=== PATIENT | female | born 1930 | race Caucasian/White ===

== ENCOUNTER 2017-06-02 11:11 | Inpatient (IN) | payer OTHER ==
[~2017-06-02] VITALS: Ht 152.4 cm; Wt 77.0 kg
[2017-06-02] MEDS ORDERED: ondansetron 4mg rapidly disintigrating tab PO ONE (12:15)
[2017-06-02] MEDS ORDERED: ondansetron/PF 4mg/2ml inj IV ONE (12:20)
[2017-06-02] MEDS ORDERED: normal saline 1000ml 1,000 ML IV ONE (12:20)
[2017-06-02] MEDS ORDERED: meclizine 12.5mg tablet PO ONE (12:25)
[2017-06-02 12:31] LABS: ALANINE AMINOTRANSFERASE 28 U/L (12-78); ALBUMIN 4.5 G/DL (3.4-5.0); ALBUMIN/GLOBULIN RATIO 1.2 (1.1-1.5); ALKALINE PHOSPHATASE 75 IU/L (46-116); ANION GAP 11 (8-16); ASPARTATE AMINO TRANSFERASE 29 U/L (10-37); BILIRUBIN,TOTAL 0.7 MG/DL (0.1-1.0); BLOOD UREA NITROGEN 25 MG/DL (7-18); BUN/CREATININE RATIO 23.6 (6.6-38.0); CALCIUM 9.7 MG/DL (8.5-10.1); CHLORIDE 103 MMOL/L (99-107); CREATININE 1.06 MG/DL (0.40-0.90); GLUCOSE 189 MG/DL (70-104); LIPASE 125 U/L (73-393); SODIUM 140 MMOL/L (135-145); TOTAL CARBON DIOXIDE 25.9 MMOL/L (24-32); TOTAL PROTEIN 8.2 G/DL (6.4-8.2); eGFR 49 ML/MIN
[2017-06-02 12:34] LABS: POTASSIUM 4.5 MMOL/L (3.5-5.1)
[2017-06-02 14:07] LABS: CLARITY,URINE SLIGHTLY CLOUDY (Clear); COLOR,URINE YELLOW (Yellow); GLUCOSE, URINE NEGATIVE (Neg); KETONES,URINE NEGATIVE (Neg); LEUKOCYTE ESTERASE ,URINE SMALL (Neg); NITRITES, URINE POSITIVE (Neg); OCCULT BLOOD,URINE TRACE-INTACT (Neg); PH,URINE 5.5 (4.8-8.0); PROTEIN,URINE 100 mg/dl (Neg); UA COLLECTION TYPE STRAIGHT CATH; UROBILINOGEN,URINE 0.2 E.U/dL (0.2-1.0)
[2017-06-02 14:13] LABS: BACTERIA,URINE 4+ /HPF (Neg); RBC,URINE 0-2 /HPF (0-2); SQUAMOUS EPITHELIAL CELL,UR NONE SEEN /LPF (FEW)
[2017-06-02 14:16] LABS: BASOPHILS % (AUTO) 0.1 % (0-1); EOSINOPHILS # (AUTO) 0.1 X10'3 (0-0.9); EOSINOPHILS % (AUTO) 0.6 % (0-6); HEMATOCRIT 42.3 % (35.0-45.0); HEMOGLOBIN 14.7 g/dl (12.0-16.0); LYMPHOCYTES # (AUTO) 0.5 X10'3 (1.1-4.8); LYMPHOCYTES % (AUTO) 5.8 % (21-51); MEAN CORPUSCULAR HEMOGLOBIN 29.2 PG (27.0-31.0); MEAN CORPUSCULAR HGB CONC 34.7 % (33.0-36.5); MEAN CORPUSCULAR VOLUME 84.2 FL (78-98); MEAN PLATELET VOLUME 9.1 FL (7.4-10.4); MONOCYTES # (AUTO) 0.2 X10'3 (0-0.9); MONOCYTES % (AUTO) 2.4 % (2-12); NEUTROPHILS # (AUTO) 8.2 X10'3 (1.8-7.7); NEUTROPHILS % (AUTO) 91.1 % (42-75); PLATELET COUNT 165 X10'3 (140-440); RED BLOOD COUNT 5.02 X10'6 (4.20-5.60); RED CELL DISTRIBUTION WIDTH 15.9 % (11.5-14.5)
[2017-06-02] MEDS ORDERED: cefTRIAXone 1g/NS 100ml IVPB 100 ML IV ONE (14:25)
[2017-06-02] MEDS ORDERED: magnesium 4gm in 100ml NS 100 ML IV PRN (15:45)
[2017-06-02] MEDS ORDERED: magnesium hydroxide 30ml (MOM) UD suspension PO PRN (15:45)
[2017-06-02] MEDS ORDERED: acetaminophen 325mg tablet PO PRN ×2 (15:45)
[2017-06-02] MEDS ORDERED: HYDROcodone/acetaminophen 5mg/325mg tablet PO PRN (15:45)
[2017-06-02] MEDS ORDERED: potassium Cl 40MEQ/NS 500ml 500 ML IV PRN ×2 (15:45)
[2017-06-02] MEDS ORDERED: potassium Cl 20 mEq SR tablet PO PRN ×2 (15:45)
[2017-06-02] MEDS ORDERED: HYDROcodone/acetaminophen 10/325mg tab PO PRN (15:45)
[2017-06-02] MEDS ORDERED: mag hydrox/Alum hydrox/simeth 30ml oral suspension PO PRN (15:45)
[2017-06-02] MEDS ORDERED: magnesium 2GM in 50ml NS 50 ML IV PRN (15:45)
[2017-06-02] MEDS ORDERED: magnesium Cl slow-release 64mg tablet PO PRN (15:45)
[2017-06-02] MEDS: normal saline 1000ml 1,000 ML IV SCH (17:24)
[2017-06-02 20:05] VITALS: BP 157/82
[2017-06-02] MEDS: docusate sod 100mg capsule PO SCH (20:49)
[2017-06-02] MEDS: heparin, porcine 5000 units/ml vial SQ SCH (20:53)
[2017-06-02] MEDS ORDERED: temazepam 15mg capsule PO PRN (21:00)
[2017-06-03] VITALS: BP_SYST 131; BP_SYST 145; BP_SYST 147; BP_DIAS 71; BP_DIAS 87
[2017-06-03 05:19] LABS: BASOPHILS % (AUTO) 0.5 % (0-1); EOSINOPHILS # (AUTO) 0.1 X10'3 (0-0.9); EOSINOPHILS % (AUTO) 1.5 % (0-6); HEMATOCRIT 39.5 % (35.0-45.0); HEMOGLOBIN 13.5 g/dl (12.0-16.0); LYMPHOCYTES # (AUTO) 1.1 X10'3 (1.1-4.8); LYMPHOCYTES % (AUTO) 12.5 % (21-51); MEAN CORPUSCULAR HEMOGLOBIN 29.5 PG (27.0-31.0); MEAN CORPUSCULAR HGB CONC 34.2 % (33.0-36.5); MEAN CORPUSCULAR VOLUME 86.2 FL (78-98); MEAN PLATELET VOLUME 9.6 FL (7.4-10.4); MONOCYTES # (AUTO) 0.7 X10'3 (0-0.9); NEUTROPHILS % (AUTO) 77.5 % (42-75); PLATELET COUNT 150 X10'3 (140-440); RED BLOOD COUNT 4.58 X10'6 (4.20-5.60); RED CELL DISTRIBUTION WIDTH 16.3 % (11.5-14.5)
[2017-06-03] MEDS: normal saline 1000ml 1,000 ML IV SCH ×2 (05:33→18:22)
[2017-06-03 05:54] LABS: ALANINE AMINOTRANSFERASE 24 U/L (12-78); ALBUMIN 3.5 G/DL (3.4-5.0); ALBUMIN/GLOBULIN RATIO 1.1 (1.1-1.5); ALKALINE PHOSPHATASE 58 IU/L (46-116); ANION GAP 11 (8-16); ASPARTATE AMINO TRANSFERASE 24 U/L (10-37); BILIRUBIN,TOTAL 0.5 MG/DL (0.1-1.0); BLOOD UREA NITROGEN 22 MG/DL (7-18); BUN/CREATININE RATIO 23.4 (6.6-38.0); CALCIUM 8.6 MG/DL (8.5-10.1); CHLORIDE 108 MMOL/L (99-107); CHOL/HDL RATIO 5.9 (0.00-4.99); CHOLESTEROL 190 MG/DL (0-200); CREATININE 0.94 MG/DL (0.40-0.90); GLUCOSE 99 MG/DL (70-104); HDL CHOLESTEROL 32 MG/DL (35-60); LDL CHOLESTEROL 125 MG/DL (50-100); MAGNESIUM 1.9 MG/DL (1.5-2.4); SODIUM 144 MMOL/L (135-145); TOTAL CARBON DIOXIDE 25.1 MMOL/L (24-32); TOTAL PROTEIN 6.7 G/DL (6.4-8.2); TRIGLYCERIDES 174 MG/DL (20-135); eGFR 56 ML/MIN
[2017-06-03 05:55] LABS: POTASSIUM 4.1 MMOL/L (3.5-5.1)
[2017-06-03] MEDS: pantoprazole 40mg Tablet.DR PO SCH (07:59)
[2017-06-03] MEDS: cefTRIAXone 1g/NS 100ml IVPB 100 ML IV SCH (07:59)
[2017-06-03] MEDS: docusate sod 100mg capsule PO SCH ×2 (07:59→20:53)
[2017-06-03 08:00] VITALS: BP_SYST 139; BP_SYST 144; BP_DIAS 68; BP_DIAS 70; BP_DIAS 73
[2017-06-03] MEDS: heparin, porcine 5000 units/ml vial SQ SCH ×2 (08:00→20:54)
[2017-06-03] MEDS: K and/or MAG REPLACEMENT MC SCH (08:00)
[2017-06-03 11:02] VITALS: BP 142/73
[2017-06-03] MEDS: ondansetron/PF 4mg/2ml inj IV PRN (11:33)
[2017-06-03] MEDS: metoprolol tartrate 25mg tablet PO SCH ×2 (16:26→20:53)
[2017-06-03] MEDS: lactobacillus rhamnosus 10,000 MMU CELLS/CAPSULE PO SCH (16:30)
[2017-06-03] MEDS: lisinopril 10 MG tablet PO SCH (17:45)
[2017-06-03] MEDS: FLUoxetine 20mg capsule PO SCH (17:45)
[2017-06-03 19:00] VITALS: BP 129/71
[2017-06-03] MEDS: atorvastatin 10mg tablet PO SCH (20:53)
[2017-06-03] MEDS ORDERED: LISI-600 PO (20:59)
[2017-06-03] MEDS ORDERED: ATEN-169 PO (20:59)
[2017-06-03] MEDS ORDERED: DONE-46 PO (21:04)
[2017-06-03] MEDS ORDERED: ASPI-611 PO (21:04)
[2017-06-03] MEDS ORDERED: AMLO2.5T2 PO (21:04)
[2017-06-03] MEDS ORDERED: FLUO20CA39 PO (21:04)
[2017-06-03] MEDS ORDERED: SIMV20TA5 PO (21:04)
[2017-06-04] VITALS (7 sets, daily range): BP systolic 102–146; BP diastolic 57–89
[2017-06-04] MEDS: normal saline 1000ml 1,000 ML IV SCH ×2 (03:08→17:46)
[2017-06-04 03:39] LABS: BASOPHILS % (AUTO) 0.6 % (0-1); EOSINOPHILS # (AUTO) 0.1 X10'3 (0-0.9); EOSINOPHILS % (AUTO) 1.9 % (0-6); HEMATOCRIT 35.6 % (35.0-45.0); HEMOGLOBIN 12.1 g/dl (12.0-16.0); LYMPHOCYTES % (AUTO) 15.9 % (21-51); MEAN CORPUSCULAR HEMOGLOBIN 29.3 PG (27.0-31.0); MEAN CORPUSCULAR HGB CONC 34.1 % (33.0-36.5); MEAN CORPUSCULAR VOLUME 85.7 FL (78-98); MEAN PLATELET VOLUME 9.4 FL (7.4-10.4); MONOCYTES # (AUTO) 0.5 X10'3 (0-0.9); MONOCYTES % (AUTO) 7.2 % (2-12); NEUTROPHILS # (AUTO) 4.8 X10'3 (1.8-7.7); NEUTROPHILS % (AUTO) 74.4 % (42-75); PLATELET COUNT 139 X10'3 (140-440); RED BLOOD COUNT 4.15 X10'6 (4.20-5.60); RED CELL DISTRIBUTION WIDTH 16.2 % (11.5-14.5); WHITE BLOOD COUNT 6.5 X10'3 (4.5-11.0)
[2017-06-04 03:58] LABS: ALANINE AMINOTRANSFERASE 20 U/L (12-78); ALBUMIN 3.2 G/DL (3.4-5.0); ALBUMIN/GLOBULIN RATIO 1.1 (1.1-1.5); ALKALINE PHOSPHATASE 54 IU/L (46-116); ANION GAP 9 (8-16); ASPARTATE AMINO TRANSFERASE 25 U/L (10-37); BILIRUBIN,TOTAL 0.6 MG/DL (0.1-1.0); BLOOD UREA NITROGEN 20 MG/DL (7-18); BUN/CREATININE RATIO 18.7 (6.6-38.0); CALCIUM 8.6 MG/DL (8.5-10.1); CHLORIDE 108 MMOL/L (99-107); CREATININE 1.07 MG/DL (0.40-0.90); GLUCOSE 98 MG/DL (70-104); MAGNESIUM 1.8 MG/DL (1.5-2.4); POTASSIUM 4.2 MMOL/L (3.5-5.1); SODIUM 143 MMOL/L (135-145); TOTAL CARBON DIOXIDE 26.5 MMOL/L (24-32); TOTAL PROTEIN 6.1 G/DL (6.4-8.2); eGFR 49 ML/MIN
[2017-06-04] MEDS: cefTRIAXone 1g/NS 100ml IVPB 100 ML IV SCH (07:32)
[2017-06-04] MEDS: FLUoxetine 20mg capsule PO SCH ×2 (07:32→20:34)
[2017-06-04] MEDS: docusate sod 100mg capsule PO SCH ×2 (07:32→20:35)
[2017-06-04] MEDS: heparin, porcine 5000 units/ml vial SQ SCH ×2 (07:32→20:36)
[2017-06-04] MEDS: lisinopril 10 MG tablet PO SCH (07:33)
[2017-06-04] MEDS: pantoprazole 40mg Tablet.DR PO SCH (07:33)
[2017-06-04] MEDS: lactobacillus rhamnosus 10,000 MMU CELLS/CAPSULE PO SCH ×2 (07:33→17:46)
[2017-06-04] MEDS: metoprolol tartrate 25mg tablet PO SCH ×2 (07:33→20:36)
[2017-06-04] MEDS: K and/or MAG REPLACEMENT MC SCH (07:36)
[2017-06-04] MEDS: atorvastatin 10mg tablet PO SCH (20:35)
[2017-06-04] MEDS ORDERED: non-formulary drug (Simvastatin* (Zocor*) 1 TAB) PO SCH (21:00)
[2017-06-05 05:59] LABS: BASOPHILS # (AUTO) 0.1 X10'3 (0-0.2); BASOPHILS % (AUTO) 0.9 % (0-1); EOSINOPHILS # (AUTO) 0.1 X10'3 (0-0.9); EOSINOPHILS % (AUTO) 2.5 % (0-6); HEMATOCRIT 36.5 % (35.0-45.0); HEMOGLOBIN 12.6 g/dl (12.0-16.0); LYMPHOCYTES % (AUTO) 16.9 % (21-51); MEAN CORPUSCULAR HEMOGLOBIN 29.3 PG (27.0-31.0); MEAN CORPUSCULAR HGB CONC 34.5 % (33.0-36.5); MEAN CORPUSCULAR VOLUME 84.9 FL (78-98); MEAN PLATELET VOLUME 9.4 FL (7.4-10.4); MONOCYTES # (AUTO) 0.5 X10'3 (0-0.9); MONOCYTES % (AUTO) 8.4 % (2-12); NEUTROPHILS # (AUTO) 4.3 X10'3 (1.8-7.7); NEUTROPHILS % (AUTO) 71.3 % (42-75); PLATELET COUNT 134 X10'3 (140-440); RED CELL DISTRIBUTION WIDTH 16.1 % (11.5-14.5)
[2017-06-05 06:15] LABS: ALANINE AMINOTRANSFERASE 47 U/L (12-78); ALBUMIN 3.2 G/DL (3.4-5.0); ALBUMIN/GLOBULIN RATIO 1.1 (1.1-1.5); ALKALINE PHOSPHATASE 59 IU/L (46-116); ANION GAP 7 (8-16); ASPARTATE AMINO TRANSFERASE 39 U/L (10-37); BILIRUBIN,TOTAL 0.5 MG/DL (0.1-1.0); BLOOD UREA NITROGEN 21 MG/DL (7-18); CALCIUM 8.3 MG/DL (8.5-10.1); CHLORIDE 109 MMOL/L (99-107); GLUCOSE 106 MG/DL (70-104); MAGNESIUM 1.8 MG/DL (1.5-2.4); POTASSIUM 4.3 MMOL/L (3.5-5.1); SODIUM 140 MMOL/L (135-145); TOTAL CARBON DIOXIDE 24.1 MMOL/L (24-32); TOTAL PROTEIN 6.2 G/DL (6.4-8.2); eGFR 53 ML/MIN
[2017-06-05] MEDS: normal saline 1000ml 1,000 ML IV SCH (06:19)
[2017-06-05 07:28] VITALS: BP 133/78
[2017-06-05] MEDS: aspirin 81mg tablet.DR PO SCH (07:59)
[2017-06-05] MEDS: donepezil 5mg tablet PO SCH (07:59)
[2017-06-05] MEDS: lisinopril 20mg tablet PO SCH (07:59)
[2017-06-05] MEDS: metoprolol tartrate 25mg tablet PO SCH (07:59)
[2017-06-05 08:00] VITALS: BP_SYST 131; BP_SYST 134; BP_SYST 138; BP_DIAS 63; BP_DIAS 70; BP_DIAS 78
[2017-06-05] MEDS: pantoprazole 40mg Tablet.DR PO SCH (08:00)
[2017-06-05] MEDS: K and/or MAG REPLACEMENT MC SCH (08:00)
[2017-06-05] MEDS ORDERED: non-formulary drug (Aspirin (Aspir 81) 1 TAB) PO SCH (08:00)
[2017-06-05] MEDS: docusate sod 100mg capsule PO SCH ×2 (08:00→20:46)
[2017-06-05] MEDS ORDERED: atenolol 50mg tablet PO SCH (08:00)
[2017-06-05] MEDS: amLODIPine 2.5mg tablet PO SCH (08:00)
[2017-06-05] MEDS: lactobacillus rhamnosus 10,000 MMU CELLS/CAPSULE PO SCH ×2 (08:15→16:32)
[2017-06-05] MEDS: heparin, porcine 5000 units/ml vial SQ SCH ×2 (08:19→20:47)
[2017-06-05] MEDS: cefTRIAXone 1g/NS 100ml IVPB 100 ML IV SCH (08:21)
[2017-06-05 11:00] VITALS: BP 131/78
[2017-06-05] MEDS: ondansetron/PF 4mg/2ml inj IV PRN (15:34)
[2017-06-05] MEDS ORDERED: bisacodyl 10mg suppository rectal RC STA (16:19)
[2017-06-05] MEDS ORDERED: ipratropium/albuterol 3ml nebule NEB PRN (16:20)
[2017-06-05 18:00] VITALS: BP 126/74
[2017-06-05 20:00] VITALS: BP_SYST 122; BP_SYST 126; BP_SYST 134; BP_DIAS 74; BP_DIAS 76; BP_DIAS 78
[2017-06-05] MEDS: metoprolol tartrate 12.5mg (1/2 tablet) PO SCH (20:46)
[2017-06-05] MEDS: FLUoxetine 20mg capsule PO SCH (20:46)
[2017-06-05] MEDS: atorvastatin 10mg tablet PO SCH (20:46)
[2017-06-06 00:06] VITALS: BP 120/71
[2017-06-06] MEDS: normal saline 1000ml 1,000 ML IV SCH ×2 (02:46→13:02)
[2017-06-06 05:45] LABS: BASOPHILS % (AUTO) 0.5 % (0-1); EOSINOPHILS # (AUTO) 0.2 X10'3 (0-0.9); EOSINOPHILS % (AUTO) 2.6 % (0-6); HEMOGLOBIN 12.4 g/dl (12.0-16.0); LYMPHOCYTES # (AUTO) 0.8 X10'3 (1.1-4.8); LYMPHOCYTES % (AUTO) 13.1 % (21-51); MEAN CORPUSCULAR HEMOGLOBIN 29.4 PG (27.0-31.0); MEAN CORPUSCULAR HGB CONC 34.4 % (33.0-36.5); MEAN CORPUSCULAR VOLUME 85.3 FL (78-98); MEAN PLATELET VOLUME 9.4 FL (7.4-10.4); MONOCYTES # (AUTO) 0.5 X10'3 (0-0.9); MONOCYTES % (AUTO) 8.1 % (2-12); NEUTROPHILS # (AUTO) 4.5 X10'3 (1.8-7.7); NEUTROPHILS % (AUTO) 75.7 % (42-75); PLATELET COUNT 132 X10'3 (140-440); RED BLOOD COUNT 4.22 X10'6 (4.20-5.60); RED CELL DISTRIBUTION WIDTH 16.4 % (11.5-14.5)
[2017-06-06 06:21] LABS: ALANINE AMINOTRANSFERASE 113 U/L (12-78); ALBUMIN 3.2 G/DL (3.4-5.0); ALBUMIN/GLOBULIN RATIO 1.1 (1.1-1.5); ALKALINE PHOSPHATASE 64 IU/L (46-116); ANION GAP 7 (8-16); ASPARTATE AMINO TRANSFERASE 94 U/L (10-37); BILIRUBIN,TOTAL 0.4 MG/DL (0.1-1.0); BLOOD UREA NITROGEN 22 MG/DL (7-18); BUN/CREATININE RATIO 19.5 (6.6-38.0); CALCIUM 8.6 MG/DL (8.5-10.1); CHLORIDE 109 MMOL/L (99-107); CREATININE 1.13 MG/DL (0.40-0.90); GLUCOSE 119 MG/DL (70-104); MAGNESIUM 1.7 MG/DL (1.5-2.4); POTASSIUM 4.9 MMOL/L (3.5-5.1); SODIUM 143 MMOL/L (135-145); TOTAL CARBON DIOXIDE 26.7 MMOL/L (24-32); TOTAL PROTEIN 6.2 G/DL (6.4-8.2); eGFR 46 ML/MIN
[2017-06-06 07:00] VITALS: BP 158/75
[2017-06-06] MEDS: docusate sod 100mg capsule PO SCH (07:56)
[2017-06-06] MEDS: lactobacillus rhamnosus 10,000 MMU CELLS/CAPSULE PO SCH (07:56)
[2017-06-06] MEDS: donepezil 5mg tablet PO SCH (07:57)
[2017-06-06] MEDS: lisinopril 20mg tablet PO SCH (07:57)
[2017-06-06] MEDS: amLODIPine 2.5mg tablet PO SCH (07:57)
[2017-06-06] MEDS: metoprolol tartrate 12.5mg (1/2 tablet) PO SCH (07:57)
[2017-06-06] MEDS: aspirin 81mg tablet.DR PO SCH (07:57)
[2017-06-06] MEDS: pantoprazole 40mg Tablet.DR PO SCH (07:58)
[2017-06-06] MEDS: heparin, porcine 5000 units/ml vial SQ SCH (07:59)
[2017-06-06 08:00] VITALS: BP_SYST 142; BP_SYST 147; BP_SYST 158; BP_DIAS 75; BP_DIAS 79; BP_DIAS 83
[2017-06-06] MEDS: K and/or MAG REPLACEMENT MC SCH (08:00)
[2017-06-06] MEDS: cefTRIAXone 1g/NS 100ml IVPB 100 ML IV SCH (08:08)
[2017-06-06] MEDS ORDERED: FLU VACC QS2017-18 36MOS UP/PF 60 MCG/0.5 ML SYRINGE IMVAC ONE (11:58)
== END 2017-06-06 17:02 | disposition home or self-care (01) | DRG 689 ==
LOC: ER 11:11 → ED HOLD 15:07 → EDBEDREQ 19:01 → SUR 3N 20:00
PROVIDERS: ADMIT Internal Medicine; ATTEND Internal Medicine
DX: N39.0 Urinary tract infection, site not specified (principal); G93.41 Metabolic encephalopathy; E11.9 Type 2 diabetes mellitus without complications; F03.90 Unspecified dementia, unspecified severity, without behavioral disturbance, psychotic disturbance, mood disturbance, and anxiety; G45.9 Transient cerebral ischemic attack, unspecified; E78.00 Pure hypercholesterolemia, unspecified; B96.20 Unspecified Escherichia coli [E. coli] as the cause of diseases classified elsewhere; E78.5 Hyperlipidemia, unspecified; H81.10 Benign paroxysmal vertigo, unspecified ear; I10 Essential (primary) hypertension; K76.0 Fatty (change of) liver, not elsewhere classified; N28.9 Disorder of kidney and ureter, unspecified; F32.9 Major depressive disorder, single episode, unspecified; K57.90 Diverticulosis of intestine, part unspecified, without perforation or abscess without bleeding; Z90.710 Acquired absence of both cervix and uterus; Z88.8 Allergy status to other drugs, medicaments and biological substances; Z79.899 Other long term (current) drug therapy; Z79.82 Long term (current) use of aspirin
CPT/HCPCS: 36415; 70450; 70544; 70551; 71045; 74176; 80053; 80061; 81001; 83690; 83735; 85025; 87070; 87077; 87088; 87186; 93005; 93306; 93880; 94760; 96361; 96365; 96375; 97116; 99285; J0696; J1644; J2405; J7030; J8597; Q2037

== ENCOUNTER 2017-12-03 21:07 | Emergency (ER) | payer MEDICARE, OTHER ==
[~2017-12-03] VITALS: Ht 149.9 cm; Wt 75.0 kg
[~2017-12-03 21:07] MED LIST: AMLO2.5T2 PO; ASPI-611 PO; ATEN-169 PO; DONE-46 PO; FLUO20CA39 PO; LISI-600 PO
[2017-12-03] MEDS ORDERED: LISI-640 PO (21:30)
[2017-12-03] MEDS ORDERED: SIMV20TA PO (21:30)
[2017-12-03 21:44] LABS: BASOPHILS % (AUTO) 0.1 % (0-1); EOSINOPHILS # (AUTO) 0.1 X10'3 (0-0.9); EOSINOPHILS % (AUTO) 0.8 % (0-6); HEMATOCRIT 42.2 % (35.0-45.0); HEMOGLOBIN 14.2 g/dl (12.0-16.0); LYMPHOCYTES # (AUTO) 0.8 X10'3 (1.1-4.8); LYMPHOCYTES % (AUTO) 6.3 % (21-51); MEAN CORPUSCULAR HGB CONC 33.7 % (33.0-36.5); MEAN CORPUSCULAR VOLUME 85.9 FL (78-98); MEAN PLATELET VOLUME 8.9 FL (7.4-10.4); MONOCYTES # (AUTO) 0.7 X10'3 (0-0.9); MONOCYTES % (AUTO) 5.3 % (2-12); NEUTROPHILS # (AUTO) 11.4 X10'3 (1.8-7.7); NEUTROPHILS % (AUTO) 87.5 % (42-75); PLATELET COUNT 153 X10'3 (140-440); RED BLOOD COUNT 4.91 X10'6 (4.20-5.60); RED CELL DISTRIBUTION WIDTH 15.8 % (11.5-14.5); WHITE BLOOD COUNT 13.1 X10'3 (4.5-11.0)
[2017-12-03 22:07] LABS: D-DIMER 12.24 MG/L FEU (0-0.50); INR 1.1 INR; PARTIAL THROMBOPLASTIN TIME 21 SECONDS (22-32)
[2017-12-03 22:08] LABS: CHOL/HDL RATIO 5.6 (0.00-4.99); CHOLESTEROL 156 MG/DL (0-200); HDL CHOLESTEROL 28 MG/DL (35-60); LDL CHOLESTEROL 90 MG/DL (50-100); TRIGLYCERIDES 221 MG/DL (20-135); TROPONIN I < 0.04 NG/ML (0.0-0.05)
[2017-12-03] MEDS ORDERED: diltiazem 5mg/ml 5ml inj. IV ONE (22:40)
[2017-12-03 22:41] LABS: TOTAL CELLS COUNTED 100
[2017-12-03 22:42] LABS: ANISOCYTOSIS 1+; PLATELET ESTIMATE NORMAL
[2017-12-03] MEDS ORDERED: acetaminophen 325mg tablet PO ONE (23:05)
[2017-12-04] MEDS ORDERED: ONDA4TAB9 PO (00:38)
[2017-12-04] MEDS ORDERED: HYDR-565 PO (00:38)
[2017-12-04] MEDS ORDERED: HYDROcodone/acetaminophen 10/325mg tab PO ONE (01:00)
[2017-12-04] MEDS ORDERED: ondansetron/PF 4mg/2ml inj IV ONE (01:00)
[2017-12-04] MEDS ORDERED: morphine 4 MG/ML inj SYRINge IV ONE (01:00)
[2017-12-04 01:30] VITALS: BP 133/95
== END 2017-12-04 01:33 | disposition home or self-care (01) ==
LOC: ER 21:07
DX: S06.0X0A Concussion without loss of consciousness, initial encounter (principal); S42.291A Other displaced fracture of upper end of right humerus, initial encounter for closed fracture; S52.572A Other intraarticular fracture of lower end of left radius, initial encounter for closed fracture; S80.02XA Contusion of left knee, initial encounter; S80.01XA Contusion of right knee, initial encounter; S00.83XA Contusion of other part of head, initial encounter; H11.31 Conjunctival hemorrhage, right eye; E07.9 Disorder of thyroid, unspecified; E78.00 Pure hypercholesterolemia, unspecified; I10 Essential (primary) hypertension; Z88.8 Allergy status to other drugs, medicaments and biological substances; Z79.82 Long term (current) use of aspirin; Z79.899 Other long term (current) drug therapy; W01.0XXA Fall on same level from slipping, tripping and stumbling without subsequent striking against object, initial encounter; Y93.89 Activity, other specified; Y92.89 Other specified places as the place of occurrence of the external cause; Y99.8 Other external cause status
CPT/HCPCS: 36415; 70450; 70486; 71045; 72125; 73030; 73100; 80061; 84439; 84443; 84484; 85025; 85379; 85610; 85730; 93005; 96374; 96375; 99285; A4565; J2270; J2405; J3490; L3650

== ENCOUNTER 2017-12-04 22:26 | Emergency (ER) | payer MEDICARE, OTHER ==
[~2017-12-04] VITALS: Ht 157.5 cm; Wt 63.6 kg
[~2017-12-04 22:26] MED LIST changes: +HYDR-565 PO; +LISI-640 PO; +ONDA4TAB9 PO; +SIMV20TA PO
[2017-12-05] MEDS ORDERED: acetaminophen 325mg tablet PO ONE (02:40)
[2017-12-05] MEDS: Melatonin 3mg tablet PO STA ×2 (02:54→03:24)
[2017-12-05 07:23] VITALS: BP 130/68
[2017-12-05] MEDS ORDERED: HYDROcodone/acetaminophen 10/325mg tab PO ONE (09:15)
== END 2017-12-05 09:41 | disposition home or self-care (01) ==
LOC: ER 22:28
DX: S42.354D Nondisplaced comminuted fracture of shaft of humerus, right arm, subsequent encounter for fracture with routine healing (principal); S00.83XD Contusion of other part of head, subsequent encounter; S52.502D Unspecified fracture of the lower end of left radius, subsequent encounter for closed fracture with routine healing; I48.91 Unspecified atrial fibrillation; N28.1 Cyst of kidney, acquired; F03.90 Unspecified dementia, unspecified severity, without behavioral disturbance, psychotic disturbance, mood disturbance, and anxiety; I10 Essential (primary) hypertension; E78.00 Pure hypercholesterolemia, unspecified; Z88.4 Allergy status to anesthetic agent; Z79.82 Long term (current) use of aspirin; Z79.899 Other long term (current) drug therapy; X58.XXXD Exposure to other specified factors, subsequent encounter
CPT/HCPCS: 36415; 71250; 84484; 93005; 99285

== ENCOUNTER 2017-12-10 11:12 | Inpatient (IN) | payer MEDICARE, OTHER ==
[~2017-12-10] VITALS: Ht 154.9 cm; Wt 76.0 kg
[~2017-12-10 11:12] MED LIST changes: -LISI-600 PO
[2017-12-10] MEDS ORDERED: diltiazem 5mg/ml 5ml inj. IV ONE (11:30)
[2017-12-10 11:32] LABS: BASOPHILS % (AUTO) 0.3 % (0-1); EOSINOPHILS % (AUTO) 0.3 % (0-6); HEMATOCRIT 45.8 % (35.0-45.0); HEMOGLOBIN 15.6 g/dl (12.0-16.0); LYMPHOCYTES # (AUTO) 0.7 X10'3 (1.1-4.8); LYMPHOCYTES % (AUTO) 5.6 % (21-51); MEAN CORPUSCULAR HEMOGLOBIN 29.3 PG (27.0-31.0); MEAN PLATELET VOLUME 9.1 FL (7.4-10.4); MONOCYTES # (AUTO) 1.1 X10'3 (0-0.9); MONOCYTES % (AUTO) 8.2 % (2-12); NEUTROPHILS # (AUTO) 11.3 X10'3 (1.8-7.7); NEUTROPHILS % (AUTO) 85.6 % (42-75); PLATELET COUNT 238 X10'3 (140-440); RED BLOOD COUNT 5.33 X10'6 (4.20-5.60); RED CELL DISTRIBUTION WIDTH 16.4 % (11.5-14.5); WHITE BLOOD COUNT 13.2 X10'3 (4.5-11.0)
[2017-12-10] MEDS ORDERED: acetaminophen 325mg tablet PO STA (11:41)
[2017-12-10] MEDS ORDERED: normal saline 1000ML IV soln IV ONE (11:45)
[2017-12-10 11:57] LABS: ALANINE AMINOTRANSFERASE 17 U/L (12-78); ALBUMIN 3.4 G/DL (3.4-5.0); ALBUMIN/GLOBULIN RATIO 0.8 (1.1-1.5); ALKALINE PHOSPHATASE 100 IU/L (46-116); ANION GAP 13 (8-16); ASPARTATE AMINO TRANSFERASE 25 U/L (10-37); BILIRUBIN,TOTAL 1.9 MG/DL (0.1-1.0); BLOOD UREA NITROGEN 33 MG/DL (7-18); CALCIUM 9.9 MG/DL (8.5-10.1); CHLORIDE 108 MMOL/L (99-107); CREATININE 1.18 MG/DL (0.40-0.90); GLUCOSE 148 MG/DL (70-104); MAGNESIUM 2.1 MG/DL (1.5-2.4); POTASSIUM 4.5 MMOL/L (3.5-5.1); SODIUM 145 MMOL/L (135-145); TOTAL CARBON DIOXIDE 24.3 MMOL/L (24-32); TOTAL PROTEIN 7.8 G/DL (6.4-8.2); eGFR 43 ML/MIN
[2017-12-10] MEDS ORDERED: diltiazem-NS 100mg/100ml 100 ML IV PRN (12:05)
[2017-12-10] MEDS ORDERED: acetaminophen 650mg rectal suppository RC ONE (12:10)
[2017-12-10 12:48] LABS: INR 1.2 INR; PARTIAL THROMBOPLASTIN TIME 26 SECONDS (22-32); PROTHROMBIN TIME 12.1 SECONDS (9.0-12.0)
[2017-12-10] MEDS: diltiazem-NS 100mg/100ml 100 ML IV SCH (12:55)
[2017-12-10] MEDS ORDERED: potassium Cl 20 mEq SR tablet PO PRN ×2 (12:55)
[2017-12-10] MEDS ORDERED: magnesium 4gm in 100ml NS 100 ML IV PRN (12:55)
[2017-12-10] MEDS ORDERED: CefTRIAXone/D5W-Rocephin 1gm 50 ML IV ONE ×2 (12:55→15:25)
[2017-12-10] MEDS ORDERED: magnesium hydroxide 30ml (MOM) UD suspension PO PRN (12:55)
[2017-12-10] MEDS ORDERED: magnesium 1gm/100ml D5W IVPB 100 ML IV PRN (12:55)
[2017-12-10] MEDS ORDERED: acetaminophen 325mg tablet PO PRN ×2 (12:55)
[2017-12-10] MEDS ORDERED: potassium Cl 40MEQ/NS 500ml 500 ML IV PRN ×2 (12:55)
[2017-12-10] MEDS ORDERED: ondansetron/PF 4mg/2ml inj IV PRN (12:55)
[2017-12-10] MEDS ORDERED: magnesium Cl slow-release 64mg tablet PO PRN (12:55)
[2017-12-10] MEDS ORDERED: mag hydrox/Alum hydrox/simeth 30ml oral suspension PO PRN (12:55)
[2017-12-10 14:25] LABS: CLARITY,URINE CLEAR (Clear); COLOR,URINE YELLOW (Yellow); GLUCOSE, URINE NEGATIVE (Neg); KETONES,URINE TRACE mg/dl (Neg); LEUKOCYTE ESTERASE ,URINE NEGATIVE (Neg); NITRITES, URINE NEGATIVE (Neg); OCCULT BLOOD,URINE NEGATIVE (Neg); PH,URINE 5.5 (4.8-8.0); PROTEIN,URINE 30 mg/dl (Neg)
[2017-12-10 14:30] LABS: UA COLLECTION TYPE FOLEY CATH
[2017-12-10 14:31] LABS: AMORPHOUS URATES 1+; BACTERIA,URINE NONE SEEN /HPF (Neg); MUCUS STRANDS FEW /LPF (Neg); RBC,URINE 0-2 /HPF (0-2); SQUAMOUS EPITHELIAL CELL,UR FEW /LPF (FEW); WBC,URINE NONE SEEN /HPF (0-4)
[2017-12-10] MEDS: normal saline 1000ml 1,000 ML IV SCH (15:25)
[2017-12-10 15:30] LABS: HEMOGLOBIN A1C 6.4 % (4.5-6.2)
[2017-12-10] MEDS ORDERED: enalaprilat dihydrate 2.5mg/2ml vial IV PRN (18:35)
[2017-12-10 18:37] VITALS: BP 174/94
[2017-12-10 19:00] VITALS: BP 175/87
[2017-12-10 20:00] VITALS: BP 150/106
[2017-12-10] MEDS: heparin, porcine 5000 units/ml vial SQ SCH (20:51)
[2017-12-10] MEDS: FLUoxetine 20mg capsule PO SCH (20:52)
[2017-12-10] MEDS: atorvastatin 10mg tablet PO SCH (20:52)
[2017-12-10 21:00] VITALS: BP 157/94
[2017-12-10] MEDS ORDERED: temazepam 15mg capsule PO PRN (21:00)
[2017-12-10] MEDS ORDERED: morphine 10mg/0.5ml (conc. morphine) oral syringe PO PRN (21:50)
[2017-12-10 22:00] VITALS: BP 151/78
[2017-12-10 23:00] VITALS: BP 134/69
[2017-12-11] VITALS (15 sets, daily range): BP systolic 123–176; BP diastolic 70–121
[2017-12-11] MEDS: diltiazem-NS 100mg/100ml 100 ML IV SCH ×5 (00:10→22:41)
[2017-12-11] MEDS: morphine 2 MG/ML inj. syringe IV PRN ×3 (00:11→22:43)
[2017-12-11 00:52] LABS: HEMATOCRIT 51.6 % (35.0-45.0); MEAN CORPUSCULAR HEMOGLOBIN 29.2 PG (27.0-31.0); MEAN CORPUSCULAR HGB CONC 32.9 % (33.0-36.5); MEAN CORPUSCULAR VOLUME 88.6 FL (78-98); MEAN PLATELET VOLUME 9.3 FL (7.4-10.4); PLATELET COUNT 171 X10'3 (140-440); RED BLOOD COUNT 5.82 X10'6 (4.20-5.60); WHITE BLOOD COUNT 8.5 X10'3 (4.5-11.0)
[2017-12-11 01:00] LABS: ALBUMIN 3.2 G/DL (3.4-5.0); ANION GAP 15 (8-16); BLOOD UREA NITROGEN 26 MG/DL (7-18); BUN/CREATININE RATIO 26.5 (6.6-38.0); CALCIUM 8.7 MG/DL (8.5-10.1); CHLORIDE 112 MMOL/L (99-107); CHOL/HDL RATIO 6.6 (0.00-4.99); CHOLESTEROL 204 MG/DL (0-200); CREATININE 0.98 MG/DL (0.40-0.90); GLUCOSE 142 MG/DL (70-104); HDL CHOLESTEROL 31 MG/DL (35-60); LDL CHOLESTEROL 150 MG/DL (50-100); MAGNESIUM 2.2 MG/DL (1.5-2.4); POTASSIUM 4.2 MMOL/L (3.5-5.1); SODIUM 148 MMOL/L (135-145); TOTAL CARBON DIOXIDE 21.5 MMOL/L (24-32); TRIGLYCERIDES 120 MG/DL (20-135); eGFR 54 ML/MIN
[2017-12-11] MEDS: normal saline 1000ml 1,000 ML IV SCH (05:59)
[2017-12-11] MEDS: K and/or MAG REPLACEMENT MC SCH (06:45)
[2017-12-11] MEDS: CefTRIAXone 2gm/D5W 50ml 50 ML IV SCH (07:41)
[2017-12-11] MEDS: aspirin 81mg tablet.DR PO SCH (07:42)
[2017-12-11] MEDS: heparin, porcine 5000 units/ml vial SQ SCH ×2 (07:43→21:45)
[2017-12-11] MEDS ORDERED: cefTRIAXone 1g/NS 100ml IVPB 100 ML IV SCH (08:00)
[2017-12-11] MEDS ORDERED: enalaprilat dihydrate 2.5mg/2ml vial IV PRN (16:05)
[2017-12-11] MEDS: dextrose 5%-water 1,000 ML IV SCH (16:21)
[2017-12-11] MEDS: FLUoxetine 20mg capsule PO SCH (21:00)
[2017-12-11] MEDS: atorvastatin 10mg tablet PO SCH (21:00)
[2017-12-12] VITALS (11 sets, daily range): BP systolic 105–139; BP diastolic 53–98
[2017-12-12] MEDS: dextrose 5%-water 1,000 ML IV SCH ×2 (03:18→15:16)
[2017-12-12] MEDS: diltiazem-NS 100mg/100ml 100 ML IV SCH ×4 (03:29→19:22)
[2017-12-12 06:42] LABS: HEMATOCRIT 37.3 % (35.0-45.0); HEMOGLOBIN 12.6 g/dl (12.0-16.0); MEAN CORPUSCULAR HEMOGLOBIN 29.4 PG (27.0-31.0); MEAN CORPUSCULAR HGB CONC 33.7 % (33.0-36.5); MEAN CORPUSCULAR VOLUME 87.2 FL (78-98); PLATELET COUNT 207 X10'3 (140-440); RED BLOOD COUNT 4.27 X10'6 (4.20-5.60); RED CELL DISTRIBUTION WIDTH 16.7 % (11.5-14.5); WHITE BLOOD COUNT 10.7 X10'3 (4.5-11.0)
[2017-12-12 06:56] LABS: ALBUMIN 2.7 G/DL (3.4-5.0); ANION GAP 10 (8-16); BLOOD UREA NITROGEN 23 MG/DL (7-18); BUN/CREATININE RATIO 24.5 (6.6-38.0); CALCIUM 8.6 MG/DL (8.5-10.1); CHLORIDE 112 MMOL/L (99-107); CREATININE 0.94 MG/DL (0.40-0.90); GLUCOSE 150 MG/DL (70-104); MAGNESIUM 2.1 MG/DL (1.5-2.4); POTASSIUM 3.7 MMOL/L (3.5-5.1); SODIUM 145 MMOL/L (135-145); TOTAL CARBON DIOXIDE 23.2 MMOL/L (24-32); eGFR 56 ML/MIN
[2017-12-12] MEDS: CefTRIAXone 2gm/D5W 50ml 50 ML IV SCH (07:53)
[2017-12-12] MEDS: aspirin 81mg tablet.DR PO SCH (07:54)
[2017-12-12] MEDS: heparin, porcine 5000 units/ml vial SQ SCH ×2 (07:54→19:22)
[2017-12-12] MEDS: K and/or MAG REPLACEMENT MC SCH (08:00)
[2017-12-12] MEDS: aspirin 300mg supp.rect RC SCH (12:32)
[2017-12-12] MEDS ORDERED: lactobacillus rhamnosus 10,000 MMU CELLS/CAPSULE PO SCH (20:00)
[2017-12-12] MEDS: atorvastatin 10mg tablet PO SCH (21:00)
[2017-12-12] MEDS: FLUoxetine 20mg capsule PO SCH (21:00)
[2017-12-13] VITALS (11 sets, daily range): BP systolic 102–155; BP diastolic 47–80
[2017-12-13] MEDS: dextrose 5%-water 1,000 ML IV SCH ×3 (01:16→18:05)
[2017-12-13] MEDS: diltiazem-NS 100mg/100ml 100 ML IV SCH ×3 (01:16→12:52)
[2017-12-13] MEDS: morphine 2 MG/ML inj. syringe IV PRN (03:43)
[2017-12-13 05:12] LABS: HEMATOCRIT 35.3 % (35.0-45.0); HEMOGLOBIN 11.9 g/dl (12.0-16.0); MEAN CORPUSCULAR HGB CONC 33.5 % (33.0-36.5); MEAN CORPUSCULAR VOLUME 86.5 FL (78-98); MEAN PLATELET VOLUME 9.4 FL (7.4-10.4); PLATELET COUNT 205 X10'3 (140-440); RED BLOOD COUNT 4.09 X10'6 (4.20-5.60); RED CELL DISTRIBUTION WIDTH 16.3 % (11.5-14.5); WHITE BLOOD COUNT 10.5 X10'3 (4.5-11.0)
[2017-12-13 05:40] LABS: ALBUMIN 2.6 G/DL (3.4-5.0); ANION GAP 10 (8-16); BLOOD UREA NITROGEN 21 MG/DL (7-18); BUN/CREATININE RATIO 24.4 (6.6-38.0); CALCIUM 8.5 MG/DL (8.5-10.1); CHLORIDE 108 MMOL/L (99-107); CREATININE 0.86 MG/DL (0.40-0.90); GLUCOSE 154 MG/DL (70-104); MAGNESIUM 1.9 MG/DL (1.5-2.4); POTASSIUM 3.6 MMOL/L (3.5-5.1); SODIUM 140 MMOL/L (135-145); TOTAL CARBON DIOXIDE 22.4 MMOL/L (24-32); eGFR 62 ML/MIN
[2017-12-13] MEDS: CefTRIAXone 2gm/D5W 50ml 50 ML IV SCH (07:32)
[2017-12-13] MEDS: aspirin 300mg supp.rect RC SCH (07:32)
[2017-12-13] MEDS: heparin, porcine 5000 units/ml vial SQ SCH ×2 (07:33→20:49)
[2017-12-13] MEDS: K and/or MAG REPLACEMENT MC SCH (07:33)
[2017-12-13] MEDS ORDERED: aspirin 300mg supp.rect RC SCH (08:00)
[2017-12-13] MEDS: atorvastatin 10mg tablet PO SCH (20:54)
[2017-12-13] MEDS: FLUoxetine 20mg capsule PO SCH (20:54)
[2017-12-14 02:00] VITALS: BP 142/65
[2017-12-14] MEDS: dextrose 5%-water 1,000 ML IV SCH (04:23)
[2017-12-14 07:00] VITALS: BP 150/94
[2017-12-14] MEDS: K and/or MAG REPLACEMENT MC SCH (08:00)
[2017-12-14] MEDS: aspirin 300mg supp.rect RC SCH (08:00)
[2017-12-14] MEDS: heparin, porcine 5000 units/ml vial SQ SCH (08:00)
[2017-12-14] MEDS: CefTRIAXone 2gm/D5W 50ml 50 ML IV SCH (08:38)
[2017-12-14 11:00] VITALS: BP 137/80
[2017-12-14] MEDS: morphine 2 MG/ML inj. syringe IV PRN ×2 (15:24→20:52)
[2017-12-14 18:00] VITALS: BP 174/95
[2017-12-15] MEDS: morphine 2 MG/ML inj. syringe IV PRN ×2 (02:12→14:05)
[2017-12-15 11:00] VITALS: BP 138/84
[2017-12-15 12:53] VITALS: BP 174/95
[2017-12-15 15:00] VITALS: BP 119/74
[2017-12-15 18:00] VITALS: BP 136/76
[2017-12-15 22:00] VITALS: BP 150/58
[2017-12-16] MEDS: morphine 2 MG/ML inj. syringe IV PRN ×3 (01:48→19:15)
[2017-12-16 11:00] VITALS: BP 131/80
[2017-12-16 19:00] VITALS: BP 176/86
[2017-12-17] MEDS: morphine 2 MG/ML inj. syringe IV PRN ×4 (04:12→21:42)
[2017-12-17 11:00] VITALS: BP 107/78
[2017-12-17 19:00] VITALS: BP 145/88
[2017-12-18] MEDS: morphine 2 MG/ML inj. syringe IV PRN ×4 (03:30→21:23)
[2017-12-18 11:00] VITALS: BP 108/67
[2017-12-18 19:00] VITALS: BP 111/82
[2017-12-19] MEDS: morphine 2 MG/ML inj. syringe IV PRN ×4 (00:44→12:06)
[2017-12-19 07:05] VITALS: BP 102/57
[2017-12-19] MEDS ORDERED: atropine sulfate 1% ophthalmic drops SL PRN (07:55)
[2017-12-19] MEDS ORDERED: furosemide 20 MG/2 ML vial IV ONE (07:55)
[2017-12-19] MEDS ORDERED: scopolamine 1.5mg patch.TD72 TD ONE (09:15)
[2017-12-19] MEDS ORDERED: LORazepam 2 mg/ml vial IV PRN (09:20)
== END 2017-12-19 15:09 | disposition expired | DRG 64 ==
LOC: ER 11:12 → ED HOLD 12:55 → PCU 3S 17:10
PROVIDERS: ADMIT Family Medicine; ATTEND Family Medicine
DX: I63.9 Cerebral infarction, unspecified (principal); G93.40 Encephalopathy, unspecified; R13.10 Dysphagia, unspecified; E87.0 Hyperosmolality and hypernatremia; I12.9 Hypertensive chronic kidney disease with stage 1 through stage 4 chronic kidney disease, or unspecified chronic kidney disease; Z51.5 Encounter for palliative care; Z66 Do not resuscitate; S42.301D Unspecified fracture of shaft of humerus, right arm, subsequent encounter for fracture with routine healing; N18.3 Chronic kidney disease, stage 3 (moderate); I48.91 Unspecified atrial fibrillation; F03.90 Unspecified dementia, unspecified severity, without behavioral disturbance, psychotic disturbance, mood disturbance, and anxiety; E78.5 Hyperlipidemia, unspecified; E78.00 Pure hypercholesterolemia, unspecified; F32.9 Major depressive disorder, single episode, unspecified; F41.9 Anxiety disorder, unspecified; Z88.8 Allergy status to other drugs, medicaments and biological substances; Z79.899 Other long term (current) drug therapy
CPT/HCPCS: 36415; 70450; 70544; 70551; 71045; 80048; 80053; 80061; 81001; 83036; 83605; 83735; 84145; 84443; 84484; 85025; 85027; 85610; 85730; 87040; 87070; 92616; 93005; 93306; 96361; 96374; 96376; 97110; 97161; 97530; 99285; A6212; A6213; C1758; J0696; J1644; J1940; J2270; J3490; J7030; J7042; J7070